=== PATIENT | female | born 1990 | race Two or more races ===

== ENCOUNTER 2024-08-17 01:14 | Emergency (ER) | payer OTHER ==
[~2024-08-17] VITALS: Ht 170.2 cm; Wt 77.1 kg
[~2024-08-17 01:14] MED LIST: KETO10TA2 PO
[2024-08-17] MEDS ORDERED: ONDANSETRON HCL 2 MG/ML VIAL ONE (03:15)
[2024-08-17] MEDS ORDERED: ONDANSETRON HCL 2 MG/ML VIAL IV ONE (03:15)
[2024-08-17] MEDS ORDERED: MEPERIDINE HCL/PF 50 MG/ML VIAL IM ONE (03:15)
[2024-08-17 03:52] LABS: HEMATOCRIT 35.8 % (36.0-45.00); HEMOGLOBIN 11.4 g/dL (12.0-15.00); MEAN CELL VOLUME 71.6 fL (80.00-100.00); MEAN CORPUSCULAR HEMOGLOBIN 22.8 pg (27.00-32.0); MEAN CORPUSCULAR HGB CONC 31.9 g/dl (32.0-36.0); PLATELET COUNT 294 K/uL (150-450); RED CELL DISTRIBUTION WIDTH 13.8 % (11.5-14.5)
[2024-08-17 04:13] LABS: ALBUMIN 3.8 gm/dL (3.4-5.0); BILIRUBIN TOTAL 0.69 mg/dL (0.3-1.2); CALCIUM 8.9 mg/dL (8.5-10.1); CREATININE SERUM 0.57 mg/dL (0.55-1.02); GFR 120.7; GLOBULINA 3.8 G/DL (2.4-3.5); POTASSIUM 3.51 mEq/L (3.5-5.1); TOTAL PROTEIN 7.6 gm/dL (6.4-8.2)
[2024-08-17] MEDS ORDERED: MIRALAX510 GM PO (04:27)
[2024-08-17] MEDS ORDERED: LACTULOSE 20 G/30 ML BLIST.PACK ONE (04:28)
[2024-08-17] MEDS ORDERED: LACTULOSE 20 G/30 ML BLIST.PACK PO ONE (04:30)
== END 2024-08-17 04:42 | disposition home or self-care (01) ==
LOC: ER 01:17
PROVIDERS: General Practice
DX: K59.00 Constipation, unspecified (principal)